=== PATIENT | male | born 2000 | race Two or more races ===

== ENCOUNTER → 2022-06-26 | Outpatient (CLI) | payer OTHER | LOC: M CARPUL 13:14 | PROVIDERS: ATTEND Internal Medicine | DX: R01.1 Cardiac murmur, unspecified (principal) ==

== ENCOUNTER 2022-07-25 13:16 | Emergency (ER) | payer OTHER ==
[~2022-07-25] VITALS: Ht 188 cm; Wt 106.8 kg
[2022-07-25] MEDS ORDERED: NORCO, ANEXSIA 5/325MG TABLET (HYDROcodone/ACETAMINOPHEN) PO ONE (15:50)
[2022-07-25 16:34] VITALS: BP 145/81
[2022-07-25] MEDS ORDERED: HYDR-3713 PO (16:35)
== END 2022-07-25 17:05 | disposition home or self-care (01) ==
LOC: M ED 13:16
DX: S82.54XA Nondisplaced fracture of medial malleolus of right tibia, initial encounter for closed fracture (principal); X50.0XXA Overexertion from strenuous movement or load, initial encounter

== ENCOUNTER → 2022-07-28 | Outpatient (CLI) | payer OTHER ==
[~2022-07-28] MED LIST: HYDR-3713 PO
== END ==
LOC: M SOG 14:55
PROVIDERS: ATTEND Orthopaedic Surgery
DX: S82.891D Other fracture of right lower leg, subsequent encounter for closed fracture with routine healing (principal)

== ENCOUNTER → 2022-07-30 | Outpatient (CLI) | payer OTHER ==
[~2022-07-30] MED LIST changes: +ECOT81TA5 PO
== END ==
LOC: M LABSMTC 10:44
PROVIDERS: ATTEND Anesthesiology
DX: Z01.812 Encounter for preprocedural laboratory examination (principal); Z20.822 Contact with and (suspected) exposure to COVID-19

== ENCOUNTER 2022-07-31 10:06 | Day surgery (SDC) | payer OTHER ==
[~2022-07-31] VITALS: Ht 188 cm; Wt 110.2 kg
[~2022-07-31 10:06] MED LIST changes: +BUPIVACAINE/EPIN 0.25% 30 ML VIAL As Ordered ONE; -ECOT81TA5 PO; +KETOROLAC 60MG 2ML VIAL As Ordered ONE; +LIDOCAINE 2% 100MG/5ML SDV (FOR ANES.) As Ordered ONE; +MIDAZOLAM INJ 2MG/2ML VIAL (J2250 PER 1MG) As Ordered ONE; +ONDANSETRON 4MG 2ML VIAL As Ordered ONE; +ceFAZolin SOD 2 GM in IV 1 EA IV ONE; +dexameTHASONE 4 MG/ML 1ML VIAL (J1100 PER 1MG) As Ordered ONE; +fentaNYL 250 MCG/5 ML INJECTION As Ordered ONE; +oxyCODONE 5MG TAB PO ONE; +propofoL 200 MG/20 ML VIAL As Ordered ONE
[2022-07-31] MEDS ORDERED: ECOT81TA5 PO (10:31)
[2022-07-31] MEDS ORDERED: LR 1,000 ML IV SCH ×2 (11:00→13:35)
[2022-07-31] MEDS ORDERED: HYDROMORPHONE HCL 0.5 MG/ 0.5 ML SYRINGE (J1170 PER 1) IV PRN (13:35)
[2022-07-31] MEDS ORDERED: fentaNYL 100 MCG/2 ML INJECTION IV PRN (13:35)
[2022-07-31] MEDS ORDERED: oxyCODONE 5MG TAB PO PRN (13:35)
[2022-07-31] MEDS ORDERED: ONDANSETRON 4MG 2ML VIAL IV PRN (13:35)
[2022-07-31] MEDS ORDERED: HYDR-3713 PO (13:58)
[2022-07-31 15:00] VITALS: BP 134/74
== END 2022-07-31 15:40 | disposition home or self-care (01) ==
LOC: M SDC 10:06
PROVIDERS: ATTEND Orthopaedic Surgery
DX: S82.861A Displaced Maisonneuve's fracture of right leg, initial encounter for closed fracture (principal); Y09 Assault by unspecified means; Y92.511 Restaurant or cafe as the place of occurrence of the external cause; Y93.9 Activity, unspecified; Y99.9 Unspecified external cause status
CPT/HCPCS: 27792; 27829; 76000; C1713; J0690; J1100; J1885; J2250; J2405; J3010

== ENCOUNTER → 2022-08-13 | Outpatient (CLI) | payer OTHER ==
[~2022-08-13] MED LIST changes: -BUPIVACAINE/EPIN 0.25% 30 ML VIAL As Ordered ONE; +ECOT81TA5 PO; -KETOROLAC 60MG 2ML VIAL As Ordered ONE; -LIDOCAINE 2% 100MG/5ML SDV (FOR ANES.) As Ordered ONE; -MIDAZOLAM INJ 2MG/2ML VIAL (J2250 PER 1MG) As Ordered ONE; -ONDANSETRON 4MG 2ML VIAL As Ordered ONE; -ceFAZolin SOD 2 GM in IV 1 EA IV ONE; -dexameTHASONE 4 MG/ML 1ML VIAL (J1100 PER 1MG) As Ordered ONE; -fentaNYL 250 MCG/5 ML INJECTION As Ordered ONE; -oxyCODONE 5MG TAB PO ONE; -propofoL 200 MG/20 ML VIAL As Ordered ONE
== END ==
LOC: M SOG 08:24
PROVIDERS: ATTEND Orthopaedic Surgery
DX: S82.861A Displaced Maisonneuve's fracture of right leg, initial encounter for closed fracture (principal); M79.89 Other specified soft tissue disorders; X58.XXXA Exposure to other specified factors, initial encounter; Y92.9 Unspecified place or not applicable; Y93.9 Activity, unspecified; Y99.9 Unspecified external cause status

== ENCOUNTER → 2022-08-17 | Outpatient (CLI) | payer OTHER | LOC: M PLAIMG 08:08 | PROVIDERS: ATTEND Orthopaedic Surgery | DX: S82.861D Displaced Maisonneuve's fracture of right leg, subsequent encounter for closed fracture with routine healing (principal) ==

== ENCOUNTER → 2022-10-06 | Outpatient (CLI) | payer OTHER | LOC: M SOG 08:09 | PROVIDERS: ATTEND Orthopaedic Surgery | DX: M25.561 Pain in right knee (principal); S82.861D Displaced Maisonneuve's fracture of right leg, subsequent encounter for closed fracture with routine healing; M19.071 Primary osteoarthritis, right ankle and foot ==

== ENCOUNTER → 2022-11-17 | Outpatient (CLI) | payer OTHER | LOC: M SOG 14:25 | PROVIDERS: ATTEND Orthopaedic Surgery | DX: S82.861D Displaced Maisonneuve's fracture of right leg, subsequent encounter for closed fracture with routine healing (principal) ==

== ENCOUNTER → 2022-12-30 | Outpatient (CLI) | payer OTHER | LOC: M SOG 13:31 | PROVIDERS: ATTEND Orthopaedic Surgery | DX: S82.861D Displaced Maisonneuve's fracture of right leg, subsequent encounter for closed fracture with routine healing (principal) ==

== ENCOUNTER → 2023-02-24 | Outpatient (CLI) | payer OTHER | LOC: M SOG 08:15 | PROVIDERS: ATTEND Orthopaedic Surgery | DX: Z47.89 Encounter for other orthopedic aftercare (principal); M11.271 Other chondrocalcinosis, right ankle and foot; Z87.81 Personal history of (healed) traumatic fracture ==

== ENCOUNTER → 2023-11-22 | Outpatient (CLI) | payer OTHER ==
[2023-11-22 12:47] LABS: HEMATOCRIT 44.3 % (42.0-52.0); HEMOGLOBIN 14.8 g/dl (13.5-17.5); MEAN CORPUSCULAR HEMOGLOBIN 30.6 pg (27.0-33.0); MEAN CORPUSCULAR HGB CONC 33.4 g/dl (32.0-36.5); MEAN CORPUSCULAR VOLUME 91.7 fl (80.0-96.0); PLATELET COUNT, AUTOMATED 342 10^3/uL (150-450); RED BLOOD COUNT 4.83 10^6/uL (4.30-6.10); WHITE BLOOD COUNT 8.7 10^3/uL (4.0-10.0)
[2023-11-22 13:18] LABS: BLOOD UREA NITROGEN 12 MG/DL (9-23); CALCIUM LEVEL 9.1 MG/DL (8.5-10.1); CARBON DIOXIDE LEVEL 27 MMOL/L (20-31); CHLORIDE LEVEL 107 MMOL/L (98-107); CREATININE FOR GFR 0.75 MG/DL (0.70-1.30); GLOMERULAR FILTRATION RATE > 60.0 (>60); GLUCOSE, FASTING 98 MG/DL (60-100); POTASSIUM SERUM 4.3 MMOL/L (3.5-5.1); SODIUM LEVEL 138 MMOL/L (136-145)
== END ==
LOC: M LAB 12:19
PROVIDERS: ATTEND Physician Assistant
DX: Z01.818 Encounter for other preprocedural examination (principal)

== ENCOUNTER 2023-11-24 05:59 | Day surgery (SDC) | payer OTHER ==
[~2023-11-24] VITALS: Ht 188 cm; Wt 140.5 kg
[~2023-11-24 05:59] MED LIST changes: +UNRESOLVED CLARIFICATION ENTRY XX SCH
[2023-11-24] MEDS ORDERED: LR 1,000 ML IV SCH ×2 (07:00→08:45)
[2023-11-24] MEDS ORDERED: BACITRACIN OINTMENT 30GM TUBE As Ordered ONE (07:10)
[2023-11-24] MEDS ORDERED: fentaNYL 100 MCG/2 ML INJECTION As Ordered ONE (07:14)
[2023-11-24] MEDS ORDERED: MIDAZOLAM INJ 2MG/2ML VIAL As Ordered ONE (07:14)
[2023-11-24] MEDS ORDERED: ONDANSETRON 4MG 2ML VIAL As Ordered ONE (07:14)
[2023-11-24] MEDS ORDERED: propofoL 200 MG/20 ML VIAL As Ordered ONE (07:14)
[2023-11-24] MEDS ORDERED: LIDOCAINE 2% 100MG/5ML SDV (FOR ANES.) As Ordered ONE (07:14)
[2023-11-24] MEDS ORDERED: ROCURONIUM BROMIDE 50MG/5ML VIAL As Ordered ONE (07:32)
[2023-11-24] MEDS: ceFAZolin SOD 1 GM in D5W MINI-BAG PLUS 50 ML IV ONE (07:43)
[2023-11-24] MEDS: ceFAZolin SOD 2 GM in IV 1 EA IV ONE (07:43)
[2023-11-24] MEDS ORDERED: dexmedeTOMIDine (4MCG/ML)200MCG/50ML BTL (PRECEDEX) As Ordered ONE (07:45)
[2023-11-24] MEDS ORDERED: ACETAMINOPHEN 1000MG 100ML IV BAG As Ordered ONE (07:55)
[2023-11-24] MEDS ORDERED: KETOROLAC 60MG 2ML VIAL As Ordered ONE (07:59)
[2023-11-24] MEDS ORDERED: SUGAMMADEX SODIUM 500 MG/5 ML VIAL (BRIDION) As Ordered ONE (07:59)
[2023-11-24] MEDS ORDERED: ESMOLOL INJ 100MG/10ML VIAL As Ordered ONE (08:17)
[2023-11-24] MEDS ORDERED: ONDANSETRON 4MG 2ML VIAL IV PRN (08:45)
[2023-11-24] MEDS ORDERED: oxyCODONE 5MG TAB PO PRN (08:45)
[2023-11-24] MEDS ORDERED: HYDROMORPHONE HCL 0.5 MG/ 0.5 ML SYRINGE IV PRN (08:45)
[2023-11-24] MEDS ORDERED: fentaNYL 100 MCG/2 ML INJECTION IV PRN (08:45)
[2023-11-24] MEDS ORDERED: ALBUTEROL 6.7GM INHALER **FOR ANES. CART/OMNICELL ONLY As Ordered ONE (09:05)
[2023-11-24] MEDS ORDERED: OXYC1TAB23 PO (09:16)
[2023-11-24] MEDS ORDERED: PERCOCET 5MG/325MG TAB PO PRN (09:50)
[2023-11-24 10:59] VITALS: BP 129/58; TEMP 98.2; O2SAT 98
== END 2023-11-24 11:34 | disposition home or self-care (01) ==
LOC: M SDC 05:59
PROVIDERS: ATTEND Urology
DX: N47.1 Phimosis (principal); K21.9 Gastro-esophageal reflux disease without esophagitis; M54.50 Low back pain, unspecified; Z87.891 Personal history of nicotine dependence; F41.9 Anxiety disorder, unspecified; F32.A Depression, unspecified; G47.33 Obstructive sleep apnea (adult) (pediatric)
CPT/HCPCS: 54161; 88304; J0131; J0690; J1100; J1805; J1885; J2250; J2405; J3010